=== PATIENT | male | born 1940 | race Caucasian/White ===

== ENCOUNTER → 2021-03-17 | Outpatient (CLI) | payer MEDICARE ==
[~2021-03-17] MED LIST: ALTA1CAP2 PO; ASPI81TA86 PO; ATEN25TA PO; ATEN50TA2 PO; COLC1TAB14 PO; CRES10TA PO; DEPA250T32 PO; FEBU80TA PO; FURO40TA2 PO; KLOR10TA76 PO; MAGN250T6 PO; MECL1CHW PO; OZEM2INJ SQ; POTA20TA6 PO; PRIL20CA9 PO; ROSU20TA5 PO; SPIR-10 PO; TRIA37.53 PO; ZYLO300T6 PO
== END ==
LOC: M LABSMTC 10:13
PROVIDERS: ATTEND Anesthesiology
DX: Z01.812 Encounter for preprocedural laboratory examination (principal); Z20.822 Contact with and (suspected) exposure to COVID-19

== ENCOUNTER 2021-03-22 08:26 | Day surgery (SDC) | payer MEDICARE ==
[~2021-03-22] VITALS: Ht 167.6 cm; Wt 95.3 kg
[~2021-03-22 08:26] MED LIST changes: +NS 1,000 ML IV ONE
[2021-03-22] MEDS ORDERED: propofoL 200 MG/20 ML VIAL As Ordered ONE (10:36)
--- NOTE | 2021-03-22 11:00 | ROOR ---
Patient Name: Don De Santiago Procedure Date: 03/22/2021 10:35 AM Date of : 1940 Age: 80 Room: [facility] Gender: Male Note Status: Finalized Procedure: Colonoscopy Indications: High risk colon cancer surveillance: Personal history of colonic polyps, Family history of colon cancer in a first-degree relative after age 60 years Providers: Pee Khan MD Referring MD: FELIX HILLIARD MD Requesting Provider: Medicines: Monitored Anesthesia Care Complications: No immediate complications. Procedure: Pre-Anesthesia Assessment: - The heart rate, respiratory rate, oxygen saturations, blood pressure, adequacy of pulmonary ventilation, and response to care were monitored throughout the procedure. The Colonoscope was introduced through the anus and advanced to the terminal ileum, with identification of the appendiceal orifice and IC valve. The colonoscopy was performed without difficulty. The patient tolerated the procedure well. The quality of the bowel preparation was good. Findings: The perianal and digital rectal examinations were normal. A diminutive polyp was found in the ascending colon. The polyp was sessile. The polyp was removed with a cold snare. Resection and retrieval were complete. Mild sigmoid diverticulosis and moderate internal hemorrhoids. The exam was otherwise without abnormality on direct and retroflexion views. Impression: - One diminutive polyp in the ascending colon, removed with a cold snare. Resected and retrieved. - Mild sigmoid diverticulosis and moderate internal hemorrhoids. - The examination was otherwise normal on direct and retroflexion views. Recommendation: - Repeat colonoscopy is not recommended for surveillance. Procedure Code(s): --- Professional --- 29080, Colonoscopy, flexible; with removal of tumor(s), polyp(s), or other lesion(s) by snare technique Diagnosis Code(s): --- Professional --- K63.5, Polyp of colon Z86.010, Personal history of colonic polyps Z80.0, Family history of malignant neoplasm of digestive organs CPT copyright 2019 [employer]. All rights reserved. The codes documented in this report are preliminary and upon sounding device operator review may be revised to meet current compliance requirements. Pee Khan MD Pee Khan MD 03/22/2021 11:00:42 AM Electronically signed by Pee Khan MD Number of Addenda: 0 Note Initiated On: 03/22/2021 10:35 AM Estimated Blood Loss: Estimated blood loss: none.
[2021-03-22 11:25] VITALS: BP 122/67
== END 2021-03-22 11:32 | disposition home or self-care (01) ==
LOC: M OPP 08:26
PROVIDERS: ATTEND Internal Medicine Gastroenterology
DX: Z12.11 Encounter for screening for malignant neoplasm of colon (principal); Z86.010 Personal history of colon polyps; Z80.0 Family history of malignant neoplasm of digestive organs; D12.6 Benign neoplasm of colon, unspecified; K21.9 Gastro-esophageal reflux disease without esophagitis; Z79.82 Long term (current) use of aspirin; Z79.899 Other long term (current) drug therapy; Z95.5 Presence of coronary angioplasty implant and graft; Z80.3 Family history of malignant neoplasm of breast

== ENCOUNTER → 2022-08-02 | Outpatient (REF) | payer MEDICARE ==
[~2022-08-02] MED LIST changes: -KLOR10TA76 PO; -NS 1,000 ML IV ONE; +POTA-136 PO; +POTA-151 PO; -POTA20TA6 PO; -TRIA37.53 PO; +TRIA37.577 PO
[2022-08-02 18:44] LABS: CREATININE, URINE 94.6 MG/DL; MAU/CREAT RATIO 78.2 MCG/MG (0.0-30.0)
== END ==
LOC: M LAB REF 17:20
PROVIDERS: ATTEND Internal Medicine Nephrology
DX: E11.22 Type 2 diabetes mellitus with diabetic chronic kidney disease (principal)

== ENCOUNTER → 2023-10-25 | Outpatient (CLI) | payer MEDICARE ==
[~2023-10-25] MED LIST changes: -ROSU20TA5 PO; +ROSU20TA61 PO
== END ==
LOC: M RAD 14:36
PROVIDERS: ATTEND Internal Medicine Gastroenterology
DX: R19.7 Diarrhea, unspecified (principal); Z53.9 Procedure and treatment not carried out, unspecified reason